=== PATIENT | male | born 1955 ===

== ENCOUNTER → 2019-05-28 | Outpatient (CLI) | payer OTHER ==
[2019-05-28 17:46] LABS: Creatinine Urine 82.4 mg/dL (27.00-270.00); Protein, Urine Quantitative 8.8 mg/dL (0.0-11.9)
[2019-05-28 17:48] LABS: Microalbumin, Urine Quant. 8.72 mg/L (0.000-20.000)
== END | disposition home or self-care (01) ==
LOC: LAB 11:43 → LAB SHORT 11:43
PROVIDERS: Internal Medicine Nephrology
DX: N18.2 Chronic kidney disease, stage 2 (mild) (principal); D63.1 Anemia in chronic kidney disease; D75.1 Secondary polycythemia; N25.81 Secondary hyperparathyroidism of renal origin; E55.9 Vitamin D deficiency, unspecified; E78.00 Pure hypercholesterolemia, unspecified; D51.8 Other vitamin B12 deficiency anemias; D52.8 Other folate deficiency anemias; D50.9 Iron deficiency anemia, unspecified; R76.9 Abnormal immunological finding in serum, unspecified; R94.5 Abnormal results of liver function studies; R73.09 Other abnormal glucose; R94.6 Abnormal results of thyroid function studies
CPT/HCPCS: 81050; 82043; 82570; 84156

== ENCOUNTER 2021-07-02 22:53 | Inpatient (IN) | payer MEDICARE, OTHER ==
[~2021-07-02] VITALS: Ht 172.7 cm; Wt 129.4 kg
[2021-07-02 23:32] LABS: EOSINOPHILS ABSOLUTE AUTO 0.05 K/mm3 (0.00-0.68); EOSINOPHILS PERCENT AUTO 0 % (0-6); Hemoglobin 19.6 g/dL (13.5-17.5); Mean Corpuscular HGB 31.2 pg (26.0-34.0); Mean Corpuscular HGB Conc 34.2 g/dL (31.5-36.5); Mean Corpuscular Volume 91 fL (80-100); Mean Platelet Volume 11.9 fL (9.1-12.4); NRBC ABSOLUTE 0.02 K/mm3 (0.00-0.02); NRBC Auto 0.1 /100 WBC (0.0-0.2); Platelet Count 144 K/mm3 (150-400); RDW Coefficient Variation 15.2 % (11.7-14.2); RDW Standard Deviation 50.4 fL (35.1-46.3); Red Blood Cell Count 6.28 M/mm3 (4.30-5.90); White Blood Cell Count 21.66 K/mm3 (4.00-11.30)
[2021-07-02 23:33] LABS: PCO2 Arterial 22.6 mmHg (35-45); PO2 Arterial 84.3 mmHg (80-100); pH Blood Arterial 7.22 (7.35-7.45)
[2021-07-02 23:35] LABS: BASOPHILS ABSOLUTE AUTO 0.01 K/mm3 (0.00-0.23); BASOPHILS PERCENT AUTO 0 % (0-2); Hematocrit 57.3 % (37.0-53.0); IMMATURE GRAN ABSOLUTE AUTO 0.26 K/mm3 (0.00-0.10); IMMATURE GRAN PERCENT AUTO 1 % (0-1); LYMPHOCYTES ABSOLUTE AUTO 1.41 K/mm3 (0.84-5.20); LYMPHOCYTES PERCENT AUTO 7 % (21-46); MONOCYTES ABSOLUTE AUTO 0.21 K/mm3 (0.16-1.47); MONOCYTES PERCENT AUTO 1 % (4-13); NEUTROPHILS ABSOLUTE AUTO 19.72 K/mm3 (1.96-9.15); NEUTROPHILS PERCENT AUTO 91 % (41-73)
[2021-07-03 00:05] LABS: Alanine Aminotransfer (ALT/SGP 54 U/L (12-78); Albumin, Blood 2.6 g/dL (3.4-5.0); Albumin/Globulin Ratio 0.5 (0.8-1.8); Alk Phos 214 U/L (50-136); Anion Gap 21 mmol/L (6-16); Aspartate Aminotrans (AST/SGOT 213 U/L (12-37); Blood Urea Nitrogen 30 mg/dL (8-24); Bun/Creatinine Ratio 18.3 (12.0-20.0); CO2, Blood 14 mmol/L (21-32); Calcium, Blood 7.6 mg/dL (8.5-10.1); Chloride, Blood 106 mmol/L (98-108); Creatinine, Blood 1.64 mg/dL (0.60-1.20); Globulin, Blood 5.5 g/dL (2.2-4.0); Glomerular Filtration Rate 42 (60-); Glucose, Blood 66 mg/dL (70-99); Potassium, Blood 3.9 mmol/L (3.5-5.5); Sodium, Blood 141 mmol/L (136-145); Total Protein, Blood 8.1 g/dL (6.4-8.2); Troponin I 0.022 ng/mL (0.000-0.040)
[2021-07-03 00:06] LABS: Ferritin, Serum 2907 ng/mL (26-388); Lactate Dehydrogenase (Ld),Bld 1795 U/L (100-240)
[2021-07-03] MEDS ORDERED: LOSA50 PO (00:13)
[2021-07-03 00:27] LABS: D-Dimer, Quantitative 6.32 mg/L FEU (0.00-0.52)
[2021-07-03 01:43] LABS: International Normalized Ratio 1.19; Prothrombin Time Results 12.7 Sec (9.7-11.5)
--- NOTE | 2021-07-03 02:24 | NUR ---
8.0 ETT, 26 CM AT TEETH
[2021-07-03 02:42] LABS: PCO2 Arterial 53.9 mmHg (35-45); pH Blood Arterial 7.04 (7.35-7.45)
[2021-07-03 02:43] LABS: PO2 Arterial 41.5 mmHg (80-100)
[2021-07-03 03:31] LABS: BASOPHILS ABSOLUTE AUTO 0.16 K/mm3 (0.00-0.23); BASOPHILS PERCENT AUTO 1 % (0-2); Hemoglobin 18.4 g/dL (13.5-17.5); Mean Corpuscular HGB Conc 33.2 g/dL (31.5-36.5); Mean Corpuscular Volume 93 fL (80-100); Mean Platelet Volume 10.9 fL (9.1-12.4); NRBC ABSOLUTE 0.02 K/mm3 (0.00-0.02); NRBC Auto 0.1 /100 WBC (0.0-0.2); Platelet Count 173 K/mm3 (150-400); RDW Coefficient Variation 15.2 % (11.7-14.2); RDW Standard Deviation 51.8 fL (35.1-46.3); Red Blood Cell Count 5.94 M/mm3 (4.30-5.90); White Blood Cell Count 31.26 K/mm3 (4.00-11.30)
[2021-07-03 03:43] LABS: EOSINOPHILS ABSOLUTE AUTO 0.08 K/mm3 (0.00-0.68); EOSINOPHILS PERCENT AUTO 0 % (0-6); Hematocrit 55.5 % (37.0-53.0); IMMATURE GRAN ABSOLUTE AUTO 0.81 K/mm3 (0.00-0.10); IMMATURE GRAN PERCENT AUTO 3 % (0-1); LYMPHOCYTES ABSOLUTE AUTO 2.04 K/mm3 (0.84-5.20); LYMPHOCYTES PERCENT AUTO 7 % (21-46); MONOCYTES ABSOLUTE AUTO 0.45 K/mm3 (0.16-1.47); MONOCYTES PERCENT AUTO 1 % (4-13); NEUTROPHILS ABSOLUTE AUTO 27.72 K/mm3 (1.96-9.15); NEUTROPHILS PERCENT AUTO 89 % (41-73)
[2021-07-03 03:50] LABS: Albumin, Blood 2.4 g/dL (3.4-5.0); Albumin/Globulin Ratio 0.5 (0.8-1.8); Bilirubin, Total 3.5 mg/dL (0.1-1.0); Bun/Creatinine Ratio 14.9 (12.0-20.0); Calcium, Blood 7.3 mg/dL (8.5-10.1); Creatinine, Blood 2.35 mg/dL (0.60-1.20); Potassium, Blood 3.9 mmol/L (3.5-5.5); Total Protein, Blood 7.4 g/dL (6.4-8.2); Troponin I 0.09 ng/mL (0.000-0.040)
[2021-07-03 04:37] LABS: PO2 Arterial 139 mmHg (80-100); pH Blood Arterial 6.94 (7.35-7.45)
[2021-07-03] MEDS ORDERED: FURO20 PO (06:53)
[2021-07-03] MEDS ORDERED: Klor-Con M1010 MEQ PO (06:54)
[2021-07-03] MEDS ORDERED: METO100ER PO (06:55)
[2021-07-03] MEDS ORDERED: LEVSOD75 PO (06:55)
[2021-07-03] MEDS ORDERED: AMLO5 PO (06:55)
[2021-07-03] MEDS ORDERED: AMLO10 PO (06:56)
[2021-07-03 08:07] LABS: Albumin, Blood 1.9 g/dL (3.4-5.0); Albumin/Globulin Ratio 0.4 (0.8-1.8); Bilirubin, Total 2.8 mg/dL (0.1-1.0); Bun/Creatinine Ratio 12.7 (12.0-20.0); Calcium, Blood 7.3 mg/dL (8.5-10.1); Creatinine, Blood 2.83 mg/dL (0.60-1.20); Globulin, Blood 4.3 g/dL (2.2-4.0); Potassium, Blood 4.4 mmol/L (3.5-5.5); Total Protein, Blood 6.2 g/dL (6.4-8.2)
[2021-07-03 08:30] LABS: PCO2 Venous 50 mmHg (38-42); pH Blood Venous 6.91 (7.34-7.37)
[2021-07-03 08:31] LABS: Base Excess Venous -22.8 mmol/L; PO2 Venous 78 mmHg (38-42)
[2021-07-03 11:21] LABS: PCO2 Venous 44 mmHg (38-42); pH Blood Venous 6.94 (7.34-7.37)
[2021-07-03 11:22] LABS: Base Excess Venous -22.7 mmol/L; Bicarbonate Venous 9.2 mmol/L (24.0-30.0)
[2021-07-03 11:52] LABS: Hemoglobin 15.1 g/dL (13.5-17.5)
--- NOTE | 2021-07-03 15:43 | NUR ---
PT ARRIVAL ON UNIT... AT 1015 THE PT ARRIVED ON THE UNIT, PT WAS IN THE PRONED POSITION INTUBATED, SEDATED AND PARALYZED, THE PT WAS ON PROPOFOL AT 20MCG, FENTANYL DRIP AT 50MCG/HR, NIMBEX AT 3MCG, LEVOPHED AT 18MCG, CARDIZEM RUNNING AT 15MCG/HR. PT ALSO HAD HEPARIN RUNNING PER ORDERS. THE PT WAS MOVED OVER TO THE ICU TO THE SUPINE POSITION. PT'S VENT SETTINGS WERE AC/VC: 24/500/16/75, ONCE THE TRANSFER WAS COMPLETE THE PT'S O2 SATS DROPPED, THE PT WAS INCREASED TO 100% FIO2 AN THEN LATER THIS WAS TITRATED DOWN TO 80% WITH O2 SATS>90%. DURING THIS TIME THE PT'S BP STARTED TO DROP WITH MEANS ONLY IN THE 40'S, THE CARDIZEM DRIP WAS STOPPED D/T HYPOTENSION AND IMPROVED RATE CONTROL. VASOPRESSIN WAS ADDED, THIS HELPED A LITTLE BIT BUT WE WERE STILL NOT ABLE TO OBTAINE A GOOD BP, EPI WAS ADDED. DR. JIM WAS AT THE BEDSIDE, AN ART LINE WAS PLACED IN THE PT'S LEFT FEMORAL ARTERY. ONCE THE ARTLINE WAS OBTAINED THE PT'S SBP WAS IN THE 170'S-190'S, THE EPI WAS STOPPED AND THE LEVOPHED WAS TITRATED DOWN TO 18 KEEPING THE MAPS >60 PER THE ART LINE. AT 1140 DR. JIM ALSO PLACED A TRI-ALYSIS DIALYSIS CATH IN THE LEFT IJ, PT HAS A CENTRAL LINE IN THE RIGHT IJ. PT HAS A ENRIQUE THAT IS PATENT BUT PT'S URINARY OUTPUT HAS ONLY BEEN 20MLS. DR. SIMENTAL WAS CONSULTED AND THE PLAN IS TO DO DIALYSIS TODAY. THE PT'S PROPOFOL WAS INCREASED D/T BETTER BP CONTROL, THE PT IS NOT ON A BIS MONITOR D/T NOT HAVING ONE AVAILABLE AT THIS TIME, THE PT HAS BEEN BREATHING WITH THE VENT AT 24 BREATHS PER MIN WITH NO BREATH STACKING. THE PT'S PROPOFOL WAS INCREASED FROM 20MCG TO 40MCG TO ENSURE PROPER SEDATION. PT ASSESSMENT: PT'S ET TUBE IS AN 8.0 27 AT THE TEETH, L/S CLEAR IN THE UPPER LOBES AND DIM IN THE LOWER. NO SECRETIONS WERE NOTED DURING SUCTIONING. BT PRESENT AND HYPOACTIVE, ABD IS SOFT TO PALP. PT'S BLE HAVE DARK DISCOLORED SKIN, PULSES ARE FAINT BUT PALPABLE. TRACE EDEMA NOTED ON ASSESSMENT. WILL CONTINUE TO MONITOR.
--- NOTE | 2021-07-03 18:28 | NUR ---
SHIFT SUMMARY... PT STARTED TO GET DIALYSIS AT APROX 1630, APROX 30 MINS INTO THE DIALYSIS TREATMENT THE PT'S BP STARTED TO DROP AND HIS HEART RATE INCREASED TO AFIB W/RVR IN THE 120'S-150'S, THE PT'S LEVOPHED WAS TITRATED UP TO 30MCG AND THE EPI WAS RESTARTED AGAIN AND TITRATED UP TO 6MCG, THIS BROUGHT THE PT'S MAPS >60 BUT THE PT'S HR CONTINUES TO BE IN THE 120'S-150'S. THE PT'S EVENING DOSE OF LASIX WAS HELD PER DR. JIM. THE PT IS DUE TO HAVE A CTA TO R/O PEs BUT WAS UNABLE TO GO TO CT D/T BEING SO UNSTABLE AT THE START OF THIS SHFIT AND DIALYSIS. THE PT'S HEPARIN GTT WAS RESTARTED AT 13/U/KG/HR PER PHARMACY D/T A CRITICAL HIGH PTT (SEE LABS). PT'S ARTLINE IS PATENT AND WORKING WELL WITH A GOOD WAVE FORM. PT'S RIGHT IJ CENTRAL LINE DRESSING WAS CHANGED THIS AM UPON ADMIT. PT'S ENRIQUE IS PATENT AND DRAINED 20MLS OF DARK YELLOW URINE TO GRAVITY. PT'S TEMP HAS IMPROVED FROM 94.8 TO 96.1 WITH WARM BLANKETS. PT'S L/S CONTINUE TO BE CLEAR AND DIM, VENT SETTINGS ARE: AC/VC: 24/500/12/90% WITH O2 SATS 90-91%. PT HAS NOT HAD A BM SINCE ADMIT. THE PT'S FAMILY WAS UPDATED BY DR. JIM, PER DR. JIM THE PT'S ON CHITO IS THE DECISION MAKER FOR THIS PT, HE WAS UPDATED ON THE PT'S CONDITION AND PLAN OF CARE.
--- NOTE | 2021-07-03 20:00 | NUR ---
ASSUMPTION OF CARE RECEIVED REPORT FROM GEORGE LIZARRAGA AT 1915, ASSUMED CARE OF PATIENT. PATIENT INTUBATED AC 500/12/100% 02 SATS ABOVE 90%. SEDATED AND PARALYZED WITH PROPOFOL, FENTANYL, AND NIMBEX. TOF 2/4, NO BIS MONITORING AT THIS TIME UNAVAILABLE BUT CURRENT SIGNS OF SEDATION WITH STABLE HEART RATE. OG TO LIS. ENRIQUE CATHETER PATENT WITH MINIMAL DARK URINE IN ENRIQUE TUBING. DIALYSIS COMPLETED CHARTED, LABS DRAWN ORDERED. WILL REVIEW ORDERS AND TREAT PRESCRIBED.
[2021-07-03 21:30] LABS: Albumin, Blood 1.7 g/dL (3.4-5.0); Albumin/Globulin Ratio 0.4 (0.8-1.8); Bilirubin, Total 3.2 mg/dL (0.1-1.0); Bun/Creatinine Ratio 10.3 (12.0-20.0); Calcium, Blood 6.4 mg/dL (8.5-10.1); Creatinine, Blood 2.91 mg/dL (0.60-1.20); Globulin, Blood 4.1 g/dL (2.2-4.0); Potassium, Blood 4.3 mmol/L (3.5-5.5); Total Protein, Blood 5.8 g/dL (6.4-8.2)
[2021-07-04 04:37] LABS: Base Excess Venous -10.9 mmol/L; Bicarbonate Venous 15.7 mmol/L (24.0-30.0); PCO2 Venous 54.4 mmHg (38-42); PO2 Venous 73.5 mmHg (38-42); pH Blood Venous 7.13 (7.34-7.37)
[2021-07-04 04:47] LABS: BASOPHILS ABSOLUTE AUTO 0.07 K/mm3 (0.00-0.23); BASOPHILS PERCENT AUTO 0 % (0-2); Hematocrit 41.8 % (37.0-53.0); Hemoglobin 14.1 g/dL (13.5-17.5); Mean Corpuscular HGB 31.3 pg (26.0-34.0); Mean Corpuscular HGB Conc 33.7 g/dL (31.5-36.5); Mean Corpuscular Volume 93 fL (80-100); Mean Platelet Volume 11.5 fL (9.1-12.4); NRBC ABSOLUTE 0.04 K/mm3 (0.00-0.02); NRBC Auto 0.2 /100 WBC (0.0-0.2); Platelet Count 146 K/mm3 (150-400); RDW Coefficient Variation 15.4 % (11.7-14.2); White Blood Cell Count 18.67 K/mm3 (4.00-11.30)
[2021-07-04 04:50] LABS: EOSINOPHILS PERCENT AUTO 0 % (0-6); IMMATURE GRAN ABSOLUTE AUTO 0.24 K/mm3 (0.00-0.10); IMMATURE GRAN PERCENT AUTO 1 % (0-1); LYMPHOCYTES ABSOLUTE AUTO 1.46 K/mm3 (0.84-5.20); LYMPHOCYTES PERCENT AUTO 8 % (21-46); MONOCYTES ABSOLUTE AUTO 0.18 K/mm3 (0.16-1.47); MONOCYTES PERCENT AUTO 1 % (4-13); NEUTROPHILS ABSOLUTE AUTO 16.72 K/mm3 (1.96-9.15); NEUTROPHILS PERCENT AUTO 90 % (41-73)
[2021-07-04 05:43] LABS: Albumin, Blood 1.5 g/dL (3.4-5.0); Anion Gap 18 mmol/L (6-16); Blood Urea Nitrogen 35 mg/dL (8-24); Bun/Creatinine Ratio 10.5 (12.0-20.0); CO2, Blood 20 mmol/L (21-32); Calcium, Blood 5.2 mg/dL (8.5-10.1); Chloride, Blood 91 mmol/L (98-108); Creatinine, Blood 3.34 mg/dL (0.60-1.20); Glomerular Filtration Rate 19 (60-); Glucose, Blood 313 mg/dL (70-99); Phosphorus, Blood 8.3 mg/dL (2.5-4.9); Potassium, Blood 3.9 mmol/L (3.5-5.5); Sodium, Blood 129 mmol/L (136-145)
--- NOTE | 2021-07-04 07:25 | NUR ---
SHIFT SUMMARY PATIENT INTUBATED, FIO2 INCREASED TO 100% AT START OF SHIFT. SATS BETWEEN 88-90% WITH FREQUENT DESATING PERIODS TO LOW 80'S. CONTINUOUS B/P FROM ART LINE, HYPOTENSIVE REQUIRING EPI, LEVO, AND VASO. NIMBEX INFUSING AND DECREASING DUE TO TOF 0/4, PROPOFOL AND FENTANYL INFUSING FOR SEDATION. OG TO LIS, MINIMAL DARK DRAINAGE IN TUBE. MINIMAL DARK URINE OUTPUT NOTED IN ENRIQUE. DR. CANDELARIA ROUNDED THIS AM, LABS REPORTED, NEW ORDERS RECEIVED AND STATED DIALYSIS WILL RUN TODAY. UPDATE GIVEN TO LARISSA THOMPSON. REPORT GIVEN TO NGOZI LIZARRAGA.
--- NOTE | 2021-07-04 07:36 | NUR ---
FENTANYL GTT END OF SHIFT CLEARED @ 0515, CLEARED 636MCG (318ML).
--- NOTE | 2021-07-04 09:28 | NUR ---
CARE OF PT ASSUMED AT 070. PT SEDATED ON PROP AT 40MCG, FENT AT 50MCG/HR FOR MECH VENT. DR JIM AT BEDSIDE THIS AM. TV DECREASED TO 400. PEEP 12, FIO2 AT 100%. SATS 86-90% W GOAL AT OR ABOVE 96% PER DR JIM. PT ON MULTIIPLE PRESSORS, MAP >65. HEP AT 15UNITS/KG/HR. NIMBEX AT 2MCG, TOF FAINT 4/4 AT 10MV. BIS UNAVAILABLE. PT AFIB W RATE 120-150. PUPILS 3/3MM, SLUGGISH. PT SYNCHRONIZED W VENT. OGT TO LIS.
--- NOTE | 2021-07-04 13:09 | NUR ---
O2 SATS WERE 80%, PEEP INCREASED TO [address] JIM. NOW 02 SATS 85%, OCC 84%. DR JIM NOTIFIED, NO FURTHER CHANGES FOR NOW
--- NOTE | 2021-07-04 13:14 | NUR ---
BIS MONITOR PLACED, SHOWING THAT PT IS IN 30'S. EPI WAS TITRATED DOWN TO 3MCG, MAP IN MID 70'S, WILL NOT TITRATE DOWN FURTHER UNTIL AFTER HD. PT TO HAVE HD SOON.
--- NOTE | 2021-07-04 19:30 | NUR ---
HD WAS STOPPED SOMEWHAT EARLY D/T FALLING BP. EPI AT 3MCG, LEVOPHED AT 25MCG, AND VASOPRESSIN INFUSING. PRESSORS NOT TO BE INCREASED PER DR JIM. MAPS >65. PROPOFOL AT 40MCG, BIS READING IN 30'S. TOF 0/4 AT 1200 AND 1600. PT SIGNIFICANTLY PARALYZED AND TOLERATING VENT AT THIS TIME. PEEP AT 14, NOT TO BE INCREASED PER DR JIM. FIO2 AT 100%, SATS HAVE BEEN BETWEEN 83 AND 88%, DR GALDAMEZ. TUBE FEEDING STARTED TODAY, PIVOT RUNNING AT 20CC/HR. PT IN AFIB W RATE 120-150, AMIO BOLUS FOLLOWED BY GTT ORDERED. HEPARIN GTT AT 17UNITS. CTA DC'D PER DR JIM.
[2021-07-05 03:43] LABS: Hemoglobin 11.6 g/dL (13.5-17.5); Mean Corpuscular HGB 31.4 pg (26.0-34.0); Mean Corpuscular HGB Conc 34.1 g/dL (31.5-36.5); Mean Corpuscular Volume 92 fL (80-100); Mean Platelet Volume 12.4 fL (9.1-12.4); NRBC ABSOLUTE 0.33 K/mm3 (0.00-0.02); NRBC Auto 2.4 /100 WBC (0.0-0.2); Platelet Count 86 K/mm3 (150-400); RDW Coefficient Variation 15.6 % (11.7-14.2); RDW Standard Deviation 52.5 fL (35.1-46.3); White Blood Cell Count 13.96 K/mm3 (4.00-11.30)
[2021-07-05 04:19] LABS: Magnesium, Blood 1.5 mg/dL (1.6-2.4)
[2021-07-05 05:53] LABS: Alanine Aminotransfer (ALT/SGP 1167 U/L (12-78); Albumin, Blood 1.3 g/dL (3.4-5.0); Albumin/Globulin Ratio 0.4 (0.8-1.8); Alk Phos 168 U/L (50-136); Anion Gap 18 mmol/L (6-16); Aspartate Aminotrans (AST/SGOT 4084 U/L (12-37); BAND PERCENT MAN 12 % (0-8); BASOPHILS PERCENT MAN 0 % (0-2); Bilirubin, Total 3.3 mg/dL (0.1-1.0); Blood Urea Nitrogen 31 mg/dL (8-24); Bun/Creatinine Ratio 8.4 (12.0-20.0); CO2, Blood 23 mmol/L (21-32); Calcium, Blood <5.0 mg/dL (8.5-10.1); Chloride, Blood 86 mmol/L (98-108); Creatinine, Blood 3.71 mg/dL (0.60-1.20); EOSINOPHILS PERCENT MAN 0 % (0-6); Glomerular Filtration Rate 16 (60-); Glucose, Blood 236 mg/dL (70-99); LYMPHOCYTES % ATYPICAL MANUAL 2 % (0-0); LYMPHOCYTES ABSOLUTE MAN 0.69 K/mm3 (0.84-5.20); LYMPHOCYTES PERCENT MAN 3 % (21-46); METAMYELOCYTE ABSOLUTE MAN 0.13 K/mm3 (0.00-0.00); METAMYELOCYTE PERCENT MAN 1 % (0-0); MONOCYTES ABSOLUTE MAN 0.97 K/mm3 (0.16-1.47); MONOCYTES PERCENT MAN 7 % (4-13); MYELOCYTE ABSOLUTE MAN 0.27 K/mm3 (0.00-0.00); MYELOCYTE PERCENT MAN 2 % (0-0); NEUTROPHILS ABSOLUTE MAN 11.86 K/mm3 (1.96-9.15); Phosphorus, Blood 8.8 mg/dL (2.5-4.9); Potassium, Blood 4.5 mmol/L (3.5-5.5); SEG NEUTROPHILS PERCENT MAN 73 % (41-73); Sodium, Blood 127 mmol/L (136-145); TOTAL CELLS COUNTED 100; Total Protein, Blood 4.3 g/dL (6.4-8.2)
[2021-07-05 07:11] LABS: HBSAG SCREEN Negative (Negative); HEP A AB, IGM Negative (Negative); HEP B CORE AB, IGM Negative (Negative); HEP C VIRUS AB <0.1 (0.0-0.9)
--- NOTE | 2021-07-05 13:12 | NUR ---
Consultation service provided relating to the use of informed dissent with the family of the principal. Given the bleak medical trajectory of the patient, his unfortunate comorbidities, and the lack of probability that aggressive clinical intervention will proportionately aid in his recovery, it was recommended that the business analyst manager gently inform the NOK / proxy that the principal is sadly not appropriate or elegible for heroic measures. It was reported that this occurred with good effect and no ensuing conflict or tension. Thank you for this consult. Tobias Witt ThD
[2021-07-05 17:14] LABS: Vancomycin, Random 13.7 ug/mL
--- NOTE | 2021-07-05 18:42 | NUR ---
SHIFT SUMMARY PT INTUBATED, SEDATED, PARALYZED ON ARRIVAL. PARALYTIC AND PROPOFOL BOTH TITRATED TO OFF, PT REMAINS UNRESPONSIVE. FENTANYL OIL BURNER TECHNICIAN INFUSING AT 50MCG/HR. AC 24, Vt 400, FIO2 100%, PEEP INCREASED TO 18 FOR SPO2 70'S-80'S, REMAINED IN THIS RANGE T/O DAY DESPITE VENT CHANGES. LS CLEAR, DIMINISHED, NO SECRETIONS FROM ETT. HR 90'S AFIB ON ARRIVAL, AMIO INFUSING AT 0.5MG, HR SLOWLY DECREASED T/O DAY TO 70'S, BP LOW WITH MAP 50'S DESPITE LEVO 22MCG, VASO 0.04U, AND EPI 3MCG, NO INCREASE IN PRESSORS PER DR. JIM. PTT >139, HEPARIN OFF THIS AM, ORAL SECRETIONS ARE LILIA, PT BRUISING, SCANT BLOOD NOTED IN ENRIQUE TUBING. DR. GALDAMEZ, HEPARIN DC'D. PT MOTTLED, PULSES TO LE'S ABSENT, SKIN COOL TO TOUCGH, TEMP LOW. TF DC'D FOR HIGH GASTRIC RESIDUALS. 20ML URINE OUTPUT TODAY, PT EDEMATOUS. AROUND 1830 THIS EVENING, PT BECAME BRADYCARDIC, HR 36. FAMILY NOTIFIED, AT BEDSIDE. HR THEN INCREASED TO 70'S AFIB AGAIN WITHOUT CHANGES TO DRIPS. FAMILY AWARE OF SITUATION, GRANDKIDS AT [facility], PT'S MOTHER AND SON HAVE BEEN NOTIFIED OF SITUATION. PT DNR PER SON AND DR. JIM.
--- NOTE | 2021-07-05 19:39 | NUR ---
Pt declining in sats and cardiac function. Time at bedside with multiple family members pt bleeing from mouth frequnt suction. pt ashen and cold. family want him com fortable. nursing called intesivist and comfort orders . will keep on vent to prevent disomfort and manage the bleeding. pt is bradying down and eminent.
--- NOTE | 2021-07-05 20:30 | NUR ---
SHIFT ASSESSMENT/ DEPARTED ASSUMED CARE OF PT @ 1900, REPORT FROM CASSIA LIZARRAGA. PT INTUBATED, SEDATED c BUSINESS AND FINANCIAL COUNSEL FENTANYL @ 50MCG/HR. PT UNRESPONSIVE. FAMILY AT BEDSIDE WELL PALLIATIVE CARE NURSE. VENT SETTINGS-AC:24/400/100%/PEEP 18 c O2 SATS 70'S-80'S. LS DIMINISHED. HR INITIALLY IN 70'S-80'S BUT DECREASED TO THE 30-40'S. EPI GTT @ 3MCG, VASO @ 0.04U, AND LEVO @ 22MCG c MAP REMAINING <50. AMIO INFUSING @ 0.5MG. COPIOUS AMNTS OF BLOOD SEEPING FROM CENTRAL LINE SITE, NOSE, AND MOUTH. DISCUSSED PTS STATUS WITH CATHLEEN, PALLIATIVE CARE NURSE WELL DR JIM. PT TRANSITIONED TO COMFORT CARE. VASOPRESSORS TITRATED OFF AFTER COMFORT CARE ORDERS. CATHLEEN AT BEDSIDE DURING THIS TIME c PTS MOTHER. MEDS SLOSLY TITRATED OFF, VENTILATOR OFF @ 2015, PT PASSED @ 2019.
--- NOTE | 2021-07-05 20:33 | NUR ---
pt with family at bedside. pt mother will notify his son. pt to go [facility].
--- NOTE | 2021-07-06 10:13 | NUR ---
Upon receiving information that a friend of the patient was trying to learn of patient's condition but is not on his contact list, I call patient's mother, Rylie,to check on her emotional/spiritual well being and to give the name and phone number of the interested republican to her. I provide therapeutic listening and words of consolation to Rylie who is grieving appropriately. I relay the information about the patient's friend, Leslie, , to Rylie so that she can reach out to her should she like to but I assure her that the hospital will not give out personal information on her son. Rylie shows signs of being comforted.
== END 2021-07-05 20:19 | DRG 871 ==
LOC: ER 22:53 → ICUE 07-03 03:06 → ERHOLD 07-03 03:06 → ICUE 07-03 08:55
PROVIDERS: Emergency Medicine; Family Medicine; Internal Medicine Critical Care Medicine; Internal Medicine Nephrology; ADMIT Internal Medicine
PROC: 0BH18EZ Insertion of Endotracheal Airway into Trachea, Via Natural or Artificial Opening Endoscopic (ICD-10-PCS; principal; 2021-07-03)
PROC: 5A09357 Assistance with Respiratory Ventilation, Less than 24 Consecutive Hours, Continuous Positive Airway Pressure (ICD-10-PCS; 2021-07-03)
PROC: 5A1945Z Respiratory Ventilation, 24-96 Consecutive Hours (ICD-10-PCS; 2021-07-03)
PROC: 3E033XZ Introduction of Vasopressor into Peripheral Vein, Percutaneous Approach (ICD-10-PCS; 2021-07-03)
PROC: 04HY32Z Insertion of Monitoring Device into Lower Artery, Percutaneous Approach (ICD-10-PCS; 2021-07-03)
PROC: 4A133B1 Monitoring of Arterial Pressure, Peripheral, Percutaneous Approach (ICD-10-PCS; 2021-07-03)
PROC: 4A133J1 Monitoring of Arterial Pulse, Peripheral, Percutaneous Approach (ICD-10-PCS; 2021-07-03)
PROC: 02HV33Z Insertion of Infusion Device into Superior Vena Cava, Percutaneous Approach (ICD-10-PCS; 2021-07-03)
PROC: 5A1D70Z Performance of Urinary Filtration, Intermittent, Less than 6 Hours Per Day (ICD-10-PCS; 2021-07-03)
PROC: 0D9670Z Drainage of Stomach with Drainage Device, Via Natural or Artificial Opening (ICD-10-PCS; 2021-07-03)
PROC: XW033E5 Introduction of Remdesivir Anti-infective into Peripheral Vein, Percutaneous Approach, New Technology Group 5 (ICD-10-PCS; 2021-07-03)
PROC: 3E0433Z Introduction of Anti-inflammatory into Central Vein, Percutaneous Approach (ICD-10-PCS; 2021-07-03)
DX: A41.89 Other specified sepsis (principal); U07.1 COVID-19; J96.01 Acute respiratory failure with hypoxia; J12.82 Pneumonia due to coronavirus disease 2019; R65.21 Severe sepsis with septic shock; D65 Disseminated intravascular coagulation [defibrination syndrome]; E87.4 Mixed disorder of acid-base balance; N17.9 Acute kidney failure, unspecified; E87.1 Hypo-osmolality and hyponatremia; Z51.5 Encounter for palliative care; E78.5 Hyperlipidemia, unspecified; E83.39 Other disorders of phosphorus metabolism; E83.51 Hypocalcemia; E05.00 Thyrotoxicosis with diffuse goiter without thyrotoxic crisis or storm; E03.9 Hypothyroidism, unspecified; I12.9 Hypertensive chronic kidney disease with stage 1 through stage 4 chronic kidney disease, or unspecified chronic kidney disease; N18.9 Chronic kidney disease, unspecified; E87.70 Fluid overload, unspecified; R74.01 Elevation of levels of liver transaminase levels; E29.1 Testicular hypofunction; I73.9 Peripheral vascular disease, unspecified; R34 Anuria and oliguria; I48.0 Paroxysmal atrial fibrillation; F32.9 Major depressive disorder, single episode, unspecified; E66.01 Morbid (severe) obesity due to excess calories; Z68.39 Body mass index [BMI] 39.0-39.9, adult; Z86.718 Personal history of other venous thrombosis and embolism; Z87.891 Personal history of nicotine dependence; Z90.89 Acquired absence of other organs; Z88.0 Allergy status to penicillin; Z88.5 Allergy status to narcotic agent; Z98.890 Other specified postprocedural states; Z79.899 Other long term (current) drug therapy
CPT/HCPCS: 31500; 36415; 36556; 36600; 36620; 71045; 76705; 80053; 80069; 80074; 80202; 82330; 82728; 82803; 82947; 83605; 83615; 83735; 83880; 84100; 84484; 85014; 85018; 85025; 85379; 85610; 85730; 86317; 87040; 87077; 87186; 93005; 93010; 94002; 94003; 94660; 96374-59; 96375; 99285-25; A9270; C1751; C1752; J0171; J0282; J0330; J0456; J0610; J0696; J1100; J1644; J1940; J2250; J2704; J3010; J3370; J3475; J7040; J7050; J7060; J7070